=== PATIENT | female | born 1985 | race Caucasian/White ===

== ENCOUNTER 2021-02-06 16:12 | Emergency (ER) | payer BC ==
[2021-02-06] MEDS ORDERED: Lidocaine 1% (PF) 30 ML VIAL ONE (18:08)
== END 2021-02-06 18:48 | disposition home or self-care (01) ==
LOC: CSHERS 16:12
DX: S66.126A Laceration of flexor muscle, fascia and tendon of right little finger at wrist and hand level, initial encounter (principal); S61.214A Laceration without foreign body of right ring finger without damage to nail, initial encounter; W26.0XXA Contact with knife, initial encounter
CPT/HCPCS: 12001; 29125; J2001

== ENCOUNTER 2021-04-07 09:52 | Outpatient (CLI) | payer BC ==
[2021-04-07 18:05] LABS: SARS-CoV-2 PCR by NAA Not Detected (NotDetected)
== END 2021-04-07 09:53 | disposition home or self-care (01) ==
LOC: CSHLAB 09:52
PROVIDERS: ATTEND Advanced Practice Midwife
DX: Z20.822 Contact with and (suspected) exposure to COVID-19 (principal)
CPT/HCPCS: U0003; U0005

== ENCOUNTER 2021-04-11 05:30 | Inpatient (IN) | payer BC ==
[2021-04-11 05:55] VITALS: BMI 28.3
[2021-04-11] MEDS ORDERED: HYDROcodone/Acetaminophen 5/325 mg Tablet PO PRN ×2 (06:23)
[2021-04-11] MEDS ORDERED: Methylergonovine 0.2 MG/ML VIAL IM PRN (06:23)
[2021-04-11] MEDS ORDERED: Carboprost 250 MCG/ML AMP IM PRN (06:23)
[2021-04-11] MEDS ORDERED: Lidocaine 1% (PF) 30 ML VIAL SC PRN (06:23)
[2021-04-11] MEDS ORDERED: hydrALAZINE 20 MG/ML VIAL SLOW IVP PRN (06:23)
[2021-04-11] MEDS ORDERED: Misoprostol 200 MCG TAB PR PRN (06:23)
[2021-04-11] MEDS ORDERED: Promethazine HCl 25 MG/ML VIAL IM PRN (06:23)
[2021-04-11] MEDS ORDERED: Ibuprofen 800 MG TAB PO PRN (06:23)
[2021-04-11] MEDS ORDERED: Diphenoxylate HCl/Atropine Tablet PO PRN ×2 (06:23)
[2021-04-11] MEDS ORDERED: Ondansetron PF 4 MG/2 ML Vial IVP PRN (06:23)
[2021-04-11] MEDS ORDERED: Butorphanol Tartrate 1 MG/ML VIAL SLOW IVP PRN (06:23)
[2021-04-11] MEDS ORDERED: NS w/ Oxytocin 30 units 500 ML IV SCH (06:30)
[2021-04-11 07:05] LABS: Mean Corpuscular HGB CONC 33.4 g/dL (32.0-36.0); Mean Corpuscular Hemoglobin 30.6 pg (27.0-33.0); Mean Corpuscular Volume 91.5 fl (81.6-98.3); Mean Platelet Volume 12.1 fl (7.4-10.4); Platelet Count 160 10x3/uL (150-450); RBC Distribution Width 13.2 % (11.5-14.5); Red Blood Cell (RBC) Count 4.25 10x6/uL (3.90-5.03); White Blood Cell (WBC) Count 10.8 10x3/uL (3.5-10.5)
[2021-04-11] MEDS: Misoprostol 100 MCG TAB VAG SCH ×4 (07:37→22:35)
[2021-04-11] MEDS ORDERED: Bupivacaine 0.25% HCL 30 ML VIAL ONE (08:00)
[2021-04-11 08:51] LABS: Hep B Surf Ag Non-Reactive S/CO (NonReactive)
[2021-04-11 08:52] LABS: Syphilis Antibody Nonreactive (Nonreactive); Syphilis Antibody Index 0.03 S/CO (<1.00 Non-Reactive)
[2021-04-11 09:39] LABS: HBSAg Index 0.18 S/CO (0-0.99)
[2021-04-11] MEDS ORDERED: Terbutaline Sulfate 1 MG/ML VIAL ONE (11:48)
[2021-04-11] MEDS: NS w/ Oxytocin 30 units 500 ML IV SCH (17:15)
[2021-04-11] MEDS ORDERED: Fentanyl 2 mcg/Bup 0.1% Cadd 100 ML ONE (18:09)
[2021-04-11] MEDS: Lactated Ringer's 1,000 ML IV SCH (19:19)
[2021-04-12] MEDS: Misoprostol 100 MCG TAB VAG SCH ×2 (01:51→01:52)
[2021-04-12] MEDS ORDERED: Fentanyl 2 mcg/Bup 0.1% Cadd 100 ML ONE (14:22)
[2021-04-12] MEDS ORDERED: Acetaminophen 325 MG TAB PO PRN (14:38)
[2021-04-12] MEDS ORDERED: Naloxone HCl 0.4 mg/ml Vial IVP PRN ×2 (14:38)
[2021-04-12] MEDS ORDERED: ePHEDrine Sulfate 50 MG/10 ML VIAL SLOW IVP PRN (14:38)
[2021-04-12] MEDS ORDERED: Lactated Ringer's 500 ML IV PRN (14:38)
[2021-04-12] MEDS ORDERED: Ondansetron PF 4 MG/2 ML Vial IVP PRN (14:38)
[2021-04-12] MEDS ORDERED: Hydrocerin (Eucerin) Cream 120 gm Jar TOP PRN (14:38)
[2021-04-12] MEDS ORDERED: diphenhydrAMINE 50 MG/ML VIAL IVP PRN (14:38)
[2021-04-12] MEDS ORDERED: Promethazine HCl 25 MG/ML VIAL IM PRN (14:38)
[2021-04-12] MEDS ORDERED: Fentanyl 2 mcg/Bupivacaine 0.1% Cassette 100 ML EPIDURAL SCH (14:45)
[2021-04-12] MEDS ORDERED: Communication Order-Pharmacy FS SCH (14:45)
[2021-04-12] MEDS ORDERED: Methylergonovine 0.2 MG/ML VIAL ONE (19:09)
[2021-04-12] MEDS ORDERED: Misoprostol 200 MCG TAB ONE (19:09)
[2021-04-12] MEDS ORDERED: Boostrix 0.5 ML (Tdap) VIAL IM ONE (19:56)
[2021-04-12] MEDS ORDERED: Bisacodyl 10 MG SUPP PR PRN (19:56)
[2021-04-12] MEDS ORDERED: hydrALAZINE 20 MG/ML VIAL SLOW IVP PRN (19:56)
[2021-04-12] MEDS ORDERED: Methylergonovine 0.2 MG/ML VIAL IM PRN (19:56)
[2021-04-12] MEDS ORDERED: HYDROcodone/Acetaminophen 5/325 mg Tablet PO PRN ×2 (19:56)
[2021-04-12] MEDS ORDERED: Benzocaine-Menthol 82.5 ML CAN TOP PRN (19:56)
[2021-04-12] MEDS ORDERED: Milk Of Magnesia 30 ML UDCUP PO PRN (19:56)
[2021-04-12] MEDS ORDERED: NS w/ Oxytocin 30 units 500 ML ONE (20:03)
[2021-04-12] MEDS: NS w/ Oxytocin 30 units 500 ML IV SCH (20:11)
[2021-04-12] MEDS ORDERED: NS w/ Oxytocin 30 units 500 ML IV SCH (20:15)
[2021-04-13] MEDS: Docusate Calcium (SURFAK) 240 MG CAP PO SCH ×3 (02:09→21:40)
[2021-04-13] MEDS: Ibuprofen 800 MG TAB PO SCH ×4 (02:09→21:40)
[2021-04-13] MEDS: Lactated Ringer's 1,000 ML IV SCH (07:58)
[2021-04-13] MEDS: Misoprostol 100 MCG TAB VAG SCH (07:58)
[2021-04-13] MEDS: Ferrous Sulfate 325 MG TAB PO SCH ×2 (08:44→19:18)
[2021-04-13] MEDS: Prenatal Vitamin 1 TAB PO SCH (08:46)
[2021-04-14 01:07] VITALS: TEMP 98.6
[2021-04-14] MEDS: Ibuprofen 800 MG TAB PO SCH ×2 (05:39→13:55)
[2021-04-14 07:35] VITALS: BP 133/66
[2021-04-14] MEDS: Ferrous Sulfate 325 MG TAB PO SCH (08:29)
[2021-04-14] MEDS: Prenatal Vitamin 1 TAB PO SCH (08:54)
[2021-04-14] MEDS: Docusate Calcium (SURFAK) 240 MG CAP PO SCH (08:54)
== END 2021-04-14 14:30 | disposition home or self-care (01) | DRG 807 ==
LOC: CSHLD 05:33 → CSHPP 04-12 22:00
PROVIDERS: ADMIT Obstetrics & Gynecology; ATTEND Obstetrics & Gynecology
PROC: 10E0XZZ Delivery of Products of Conception, External Approach (ICD-10-PCS; principal; 2021-04-13)
PROC: 10907ZC Drainage of Amniotic Fluid, Therapeutic from Products of Conception, Via Natural or Artificial Opening (ICD-10-PCS; 2021-04-13)
PROC: 3E033VJ Introduction of Other Hormone into Peripheral Vein, Percutaneous Approach (ICD-10-PCS; 2021-04-13)
DX: O24.429 Gestational diabetes mellitus in childbirth, unspecified control (principal); Z37.0 Single live birth; Z3A.39 39 weeks gestation of pregnancy; Z88.0 Allergy status to penicillin; Z88.2 Allergy status to sulfonamides
CPT/HCPCS: 36415; 51702; 85027; 86780; 86850; 86900; 86901; 87340; J2590; S0020